=== PATIENT | female | born 1995 | race Caucasian/White ===

== ENCOUNTER 2017-02-20 19:32 | Emergency (ER) | payer OTHER ==
[~2017-02-20] VITALS: Ht 170.2 cm; Wt 68.0 kg
[2017-02-20 19:34] VITALS: BP 129/72; PULSE 134; RESP 15; TEMP 102.1; O2SAT 97
--- NOTE | 2017-02-20 23:15 | PD ---
HPI Chief Complaint: Complaint Time Seen by Provider: 23:12 Travel History International Travel<30 days: Yes Contact w/Intl Traveler<30days: Yes Name of Country Traveled to: [place] Traveled to known affect area: No History of Present Illness HPI 21-year-old white female presents to emergency department with complaints of increased urinary frequency, urgency, dysuria, hematuria, lower pelvic cramping , flank tenderness over the past week. She states that the symptoms started off slowly and she had been using cranberry juice with some temporary resolution. She states that the symptoms came back stronger today. She states that she had a subjective fever earlier. She denies any nausea vomiting. No abdominal pain. No vaginal discharge. She does state that she has some intermittent spotting with her IUD but does not have any normal periods. Symptoms are moderate. Some improvement symptoms with cranberry juice. PFSH Past Medical History Narrative Medical UTIs Tetanus Vaccination: < 5 Years ?: Not Past Surgical History Surgical History: No Previous Surgery Social History Alcohol Use: Yes Tobacco Use: No Substance Use: No Allergies-Medications (Allergen,Severity, Reaction): Coded Allergies: No Known Allergies (Unverified , 02/20/17) Reported Meds & Prescriptions Reported Meds & Active Scripts Active No Active Prescriptions or Reported Medications Review of Systems Except as stated in HPI: all other systems reviewed are Neg Physical Exam Narrative GENERAL: Well-developed, well-nourished in no acute distress. Nontoxic appearing. HEAD: Normocephalic, atraumatic. EYES: Pupils equal round and reactive. Extraocular motions intact. No scleral icterus. No injection or drainage. ENT: TMs clear without erythema. The external auditory canals clear. Nose: clear . Posterior pharynx is pink and moist. No tonsillar edema or exudate. Uvula midline. Airway patent. NECK: Trachea midline.Supple, nontender, moves head freely. No central bony tenderness or spasm. CARDIOVASCULAR: Regular rate and rhythm without murmurs, gallops, or rubs. RESPIRATORY: Clear to auscultation. Breath sounds equal bilaterally. No wheezes , rales, or rhonchi. GASTROINTESTINAL: Abdomen soft, non-tender, nondistended. No hepato-splenomegaly , or palpable masses. No guarding. EXTREMITIES: No clubbing, cyanosis, or edema. No joint tenderness, effusion, or edema noted. BACK: Nontender without deformity or crepitance. Patient has mild bilateral flank tenderness. Data Data Last Documented VS Vital Signs Date Time Temp Pulse Resp B/P Pulse Ox O2 Delivery O2 Flow Rate FiO2 02/20/17 23:11 16 02/20/17 19:34 102.1 134 129/72 97 Room Air Orders Ed Urine Pregnancytest Poc (02/20/17 23:11) Urinalysis - C+S If Indicated (02/20/17 23:11) Ceftriaxone Inj (Rocephin Inj) (02/20/17 23:30) Urine Culture (02/20/17 23:20) Labs Laboratory Tests Test 02/20/17 23:20 Urine Color YELLOW Urine Turbidity CLOUDY Urine pH 5.5 Urine Specific [place] 1.018 Urine Protein 100 mg/dL Urine Glucose (UA) NEG mg/dL Urine Ketones 10 mg/dL Urine Occult Blood MOD Urine Nitrite POS Urine Bilirubin NEG Urine Urobilinogen LESS THAN 2.0 MG/DL Urine Leukocyte Esterase LARGE Urine RBC 48 /hpf Urine WBC /hpf Urine WBC Clumps MANY Urine Squamous Epithelial 1 /hpf Cells Urine Mucus MOD /lpf Microscopic Urinalysis Comment CULTURE INDICATED MDM Medical Decision Making Medical Screen Exam Complete: Yes Emergency Medical Condition: Yes Medical Record Reviewed: Yes Interpretation(s) Laboratory Tests Test 02/20/17 23:20 Urine Color YELLOW Urine Turbidity CLOUDY Urine pH 5.5 Urine Specific [place] 1.018 Urine Protein 100 mg/dL Urine Glucose (UA) NEG mg/dL Urine Ketones 10 mg/dL Urine Occult Blood MOD Urine Nitrite POS Urine Bilirubin NEG Urine Urobilinogen LESS THAN 2.0 MG/DL Urine Leukocyte Esterase LARGE Urine RBC 48 /hpf Urine WBC /hpf Urine WBC Clumps MANY Urine Squamous Epithelial 1 /hpf Cells Urine Mucus MOD /lpf Microscopic Urinalysis Comment CULTURE INDICATED Differential Diagnosis Differential diagnoses: UTI, pyelonephritis, urethritis, Narrative Course Patient's urinalysis is positive for a urinary tract infection. Patient's given Rocephin 1 g IM. She is not nauseous or vomiting. She has no abdominal pain. Patient does complain of bilateral flank tenderness. She does have some question no reproducible pain on exam. She will be treated for possible early pyelonephritis. Patient is able take by mouth. She stable to go home on oral antibiotics. Early pyelonephritis Diagnosis Primary Impression: Early pyelonephritis Patient Instructions: General Instructions Additional Instructions: Rest. Increase fluids. Macrobid and Pyridium. Follow-up with a primary care doctor in one week. Return to the ER for any problems. Med/Other Pt SpecificInfo: Prescription(s) given Scripts No Active Prescriptions or Reported Meds Disposition: 01 DISCHARGE HOME Condition: Stable [place]en Conn Feb 20, 2017 23:15
[2017-02-20 23:41] LABS: BLOOD, URINE MOD (NEG); COMMENT (UR) CULTURE INDICATED; CULTURE IF INDICATED CULTURE INDICATED; GLUCOSE,URINE NEG (NEG); KETONE, URINE 10 mg/dL (NEG); MUCUS URINE MOD /lpf (OCC); PH, URINE 5.5 (5.0-8.5); SQUAMOUS EPITHELIAL CELL URINE 1 /hpf (0-5); URINE COLOR YELLOW (YELLW/STRAW)
[2017-02-20 23:44] LABS: NITRITE,URINE POS (NEG)
[2017-02-21] MEDS ORDERED: MACR100C2 PO (00:12)
[2017-02-21] MEDS ORDERED: PHEN-510 PO (00:12)
[2017-02-21] MEDS ORDERED: PHENAZOPYRIDINE HCL 200 MG TAB PO ONE (00:15)
[2017-02-21 00:18] VITALS: BP 118/63; TEMP 98.6
== END 2017-02-21 00:36 | disposition home or self-care (01) ==
LOC: NEPD 19:32
DX: N10 Acute pyelonephritis (principal); B96.20 Unspecified Escherichia coli [E. coli] as the cause of diseases classified elsewhere
CPT/HCPCS: 81001; 84703; 87077; 87086; 87186; 96372; 99284; J0696